=== PATIENT | female | born 1965 | race Caucasian/White ===

== ENCOUNTER → 2017-02-03 | Day surgery (SDC) | payer OTHER ==
[2017-01-30 14:44] VITALS: BMI 46.0
[~2017-02-03] VITALS: Ht 172.7 cm; Wt 136.4 kg
[~2017-02-03] MED LIST: CLIN1GEL5 TOP; EFF/375 PO; KETO2SHA TOP; LIDOCAINE HCL 2% 2 ML VIAL (20MG/ML) ONE; PROPOFOL IV EMULSION 10 MG/ML 20 ML VIAL IV ONE; SODIUM CHLORIDE 0.9% 500ML 500 ML IV ONE
[2017-02-03 09:06] VITALS: Ht 172.7 cm; Wt 136.4 kg
[2017-02-03 09:18] VITALS: TEMP 36.8
--- NOTE | 2017-02-03 09:41 | Endo History and Physical ---
History & Physical Date of Service: Feb 03, 2017. Chief Complaint: epigastric pain, abd pain Referring Physician: Dr Mantilla History of Present Illness epigastric pain and heartburn Past Surgical History Hx Cardiac Surgery: No Hx Internal Defibrillator: No Hx Pacemaker: No Hx Abdominal Surgery: Yes (GASTRIC BYPASS, ) Hx of Implantable Prosthesis: No Hx Post-Op Nausea and Vomiting: No Hx Cancer Surgery: Yes (LEFT CALF SKIN REMOVAL) Hx Thoracic Surgery: No Hx Orthopedic: No Hx Urinary Tract Surgery: No Family History IBD Social History Smoking Status: Current Every Day Smoker Hx Substance Use: No Hx Alcohol Use: Yes (VERY RARELY) Allergies Coded Allergies: Sulfa Drugs (Unverified Allergy, Mild, GI SYMPTOMS, 01/30/17) PATIENT HAD SYMPTOMS OF CHEST PAINS AND ABD CRAMPING Current Medications Reported Home Medications Medications Dose Route/Sig Max Daily Dose Days Date Category Ketoconazole (Ketoconazole (Topical)) 2 % Sha 1 Appln TOP DAILY PRN 05/14/16 Reported Clindamycin Phosphate (Clindamycin Phosphate (Topical) 1 % Gel 1 Appln TOP DAILY PRN 07/15/13 Reported Effexor (Venlafaxine Hcl) 37.5 Mg Tab 37.5 Mg PO QAM 07/15/13 Reported Vital Signs Weight (Kilograms): 136.36 Height (Feet): 5 Height (Inches): 8 Date Time Temp Pulse Resp B/P Pulse Ox O2 Delivery O2 Flow Rate FiO2 02/03/17 09:18 36.8 60 16 145/90 96 Room Air Physical Exam General Appearance: no apparent distress Respiratory/Chest: Auscultation: breath sounds normal Cardiovascular: Heart Auscultation: RRR Abdomen: Inspection & Palpation: soft Liver: non-tender Assessment and Plan stable for upper endoscopy
--- NOTE | 2017-02-03 09:55 | Discharge Instructions ---
Endoscopy Patient Instructions Date / Procedure(s) Performed Feb 03, 2017. EGD Allergy Information Coded Allergies: Sulfa Drugs (Unverified Allergy, Mild, GI SYMPTOMS, 01/30/17) PATIENT HAD SYMPTOMS OF CHEST PAINS AND ABD CRAMPING Discharge Date / Findings Feb 03, 2017. Normal post bypass anatomy. No ulcers. Provider Instructions Activity Restrictions - No exercising or heavy lifting for 24 hours. - Do not drink alcohol the day of the procedure. - Do not drive a car or operate machinery until the day after the procedure. - Do not make any important decisions or sign important papers in 24 hours after the procedure. Following Day: - Return to full activity which may include returning to work/school. Diet Start your diet with liquids and light foods (jello, soup, juice, toast). Then eat your usual diet if not nauseated. Treatment For Common After Affects For mild abdominal pain, bloating, or excessive gas: - Rest - Eat lightly - Lie on right side Follow-Up Information Follow-up with Dr Mantilla as scheduled Anesthesia Information What You Should Know You have had a procedure that required some medicine to reduce anxiety and discomfort. This treatment is called moderate sedation. After receiving the treatment, you may be sleepy, but you will be able to breathe on your own. The effects of the treatment may last for several hours. Follow these instructions along with Activity/Diet recommendations noted above: * Do NOT do anything where dizziness or clumsiness would be dangerous. * Rest quietly at home today, then you can be up and about tomorrow. * Have a responsible person stay with you the rest of today. * You may have had an I.V. today. If so, you may take the dressing off later today. Recommendations Call your doctor if: * Trouble breathing * Continuous vomiting for more than 24 hours * Temperature above 101 degrees * Severe abdominal pain or bloating * Pain not relieved by pain medicine ordered * There is increased drainage or redness from any incision * A large amount of rectal bleeding greater than 2-3 tablespoons. (If you had a polyp/s removed or have hemorrhoids, a small amount of blood - from the rectum is to be expected.) * You have any unanswered questions or concerns. IN THE EVENT OF A SERIOUS EMERGENCY, GO TO THE NEAREST EMERGENCY ROOM Your discharge instructions were prepared by provider Wally Sanchez. Patient Instructions Signature Page Patricia Morales Patient (or Guardian) Signature/Date: I have read and understand the instructions given to me by my caregivers. Caregiver/RN/Doctor Signature/Date: The above-named patient and/or guardian has received patient instructions on this date. + Original Patient Signature Page (only) stays with chart. Please make copy for patient.
--- NOTE | 2017-02-03 10:11 | GI REPORT ---
Procedure Date: 02/03/2017 9:38 AM Procedure: Upper GI endoscopy Indications: Epigastric abdominal pain, Heartburn Medicines: See the Anesthesia note for documentation of the administered medications Complications: No immediate complications. Estimated Blood Loss: Estimated blood loss: none. Procedure: Pre-Anesthesia Assessment: - Prior to the procedure, a History and Physical was performed, and patient medications, allergies and sensitivities were reviewed. The patient's tolerance of previous anesthesia was reviewed. - The risks and benefits of the procedure and the sedation options and risks were discussed with the patient. All questions were answered and informed consent was obtained. - Patient identification and proposed procedure were verified prior to the procedure by the physician and the nurse. The procedure was verified in the pre-procedure area. - Pre-procedure physical examination revealed no contraindications to sedation. - After reviewing the risks and benefits, the patient was deemed in satisfactory condition to undergo the procedure. After obtaining informed consent, the endoscope was passed under direct vision. Throughout the procedure, the patient's blood pressure, pulse, and oxygen saturations were monitored continuously. The scope was introduced through the mouth, and advanced to the third part of duodenum. The upper GI endoscopy was accomplished without difficulty. The patient tolerated the procedure well. Findings: The esophagus was normal. Evidence of a gastric bypass was found. A gastric pouch with a normal size was found. The staple line appeared intact. The gastrojejunal anastomosis was characterized by healthy appearing mucosa. The jejunojejunal anastomosis was characterized by healthy appearing mucosa. The examined jejunum was normal. Impression: - Normal esophagus. - Gastric bypass with a normal-sized pouch and intact staple line. Gastrojejunal anastomosis characterized by healthy appearing mucosa. - No ulcers. - Normal examined jejunum. - No specimens collected. Recommendation: - Discharge patient to home. Wally Sanchez M.D. Wally Sanchez MD 02/03/2017 10:10:25 AM This report has been signed electronically. Note Initiated On: 02/03/2017 9:38 AM I attest to the content of the Intraoperative Record and orders documented therein, exceptions below
[2017-02-03 10:27] VITALS: BP 148/96; PULSE 54; O2SAT 99
--- NOTE | 2017-02-03 10:30 | Anesthesiology Progress Note ---
Anesthesia Post Op Note Date & Time Feb 03, 2017 at 10:29 Vital Signs Pain Intensity: 0 Vital Signs Past 12 Hours Date Time Temp Pulse Resp B/P Pulse Ox O2 Delivery O2 Flow Rate FiO2 02/03/17 10:27 54 16 148/96 99 Room Air 02/03/17 10:02 57 16 141/98 97 Room Air 02/03/17 09:53 64 16 139/80 97 Room Air 02/03/17 09:18 36.8 60 16 145/90 96 Room Air Notes Mental Status: alert / awake / arousable, participated in evaluation Pt Amnestic to Procedure: Yes Nausea / Vomiting: adequately controlled Pain: adequately controlled Airway Patency, RR, SpO2: stable & adequate BP & HR: stable & adequate Hydration State: stable & adequate Anesthetic Complications: no major complications apparent
== END | disposition home or self-care (01) ==
LOC: C.GI 08:46
PROVIDERS: ATTEND Internal Medicine Gastroenterology
DX: R10.13 Epigastric pain (principal); R12 Heartburn; Z98.84 Bariatric surgery status; F32.9 Major depressive disorder, single episode, unspecified; E66.01 Morbid (severe) obesity due to excess calories; Z68.42 Body mass index [BMI] 45.0-49.9, adult; F17.200 Nicotine dependence, unspecified, uncomplicated; Z88.2 Allergy status to sulfonamides; Z98.890 Other specified postprocedural states; Z85.828 Personal history of other malignant neoplasm of skin